=== PATIENT | male | born 2005 | race Caucasian/White ===

== ENCOUNTER → 2024-07-30 13:15 | Outpatient (BNVA) | payer OTHER, SELFPAY | PROVIDERS: Family Provider Specialist; PCP Family Medicine; Visit Provider Family Medicine | DX: Z79.899 Other long term (current) drug therapy (principal); F84.0 Autistic disorder; F91.9 Conduct disorder, unspecified; F41.9 Anxiety disorder, unspecified; E83.42 Hypomagnesemia; E55.9 Vitamin D deficiency, unspecified; R79.89 Other specified abnormal findings of blood chemistry | CPT/HCPCS: 80053; 80061; 82306; 82607; 82746; 83735; 84439; 84443; 85025 ==